=== PATIENT | male | born 1985 | race Caucasian/White ===

== ENCOUNTER 2025-07-09 15:18 | Emergency (ER) | payer BC ==
[2025-07-09] MEDS ORDERED: Sodium Chloride 0.9% 10 ML Syringe FLUSH PRN (15:27)
[2025-07-09] MEDS: Ondansetron 4 MG/2 ML SDV IVPUSH PRN (15:41)
[2025-07-09] MEDS: Diphtheria,Pertussis(Acell),Tetanus Vaccine 0.5 ML Syringe IM ONE (15:51)
== END 2025-07-09 16:46 ==
LOC: CC.ED 15:18
DX: S61.320A Laceration with foreign body of right index finger with damage to nail, initial encounter (principal); Z23 Encounter for immunization; W26.8XXA Contact with other sharp object(s), not elsewhere classified, initial encounter
CPT/HCPCS: 64450; 73130-LT; 73130-RT; 90471; 90715; 96374; 96375; 99284-25; J1171; J2003; J2405